=== PATIENT | male | born 1995 | race Hispanic/Latino ===

== ENCOUNTER 2020-07-10 14:51 | Emergency (ER) | payer BC, OTHER ==
[2020-07-10 15:34] LABS: RAPID GROUP A STREP NEGATIVE (NEGATIVE)
[2020-07-10] MEDS ORDERED: DEXAMETHASONE SOD PHOSPHATE 10MG/ML 1ML VIAL ONE (16:12)
== END 2020-07-10 16:34 | disposition home or self-care (01) ==
LOC: EDH 14:51
DX: J45.21 Mild intermittent asthma with (acute) exacerbation (principal); Z20.828 Contact with and (suspected) exposure to other viral communicable diseases; Z98.890 Other specified postprocedural states; Z87.891 Personal history of nicotine dependence
CPT/HCPCS: 71045; 87426; 87804 ×2; 87880; 96372; 99284; J1100

== ENCOUNTER 2021-01-26 15:17 | Emergency (ER) | payer BC ==
[~2021-01-26] VITALS: Ht 190.5 cm; Wt 81.6 kg
[2021-01-26 15:18] VITALS: BP 115/67
[2021-01-26 16:44] LABS: BASOPHILS % (AUTO) 0.6 % (0.0-5.0); EOSINOPHILS % (AUTO) 0.8 % (0.0-8.0); LYMPHOCYTES % (AUTO) 22.2 % (21.0-51.0); MEAN CORPUSCULAR HEMOGLOBIN 30.3 pg (27.0-33.0); MEAN CORPUSCULAR HGB CONC 32.9 g/dL (32.0-36.0); MEAN CORPUSCULAR VOLUME 92.3 fL (79-99); MONOCYTES % (AUTO) 21.6 % (3.0-13.0); NEUTROPHILS % (AUTO) 54.6 % (40.0-77.0); PLATELET COUNT (AUTO) 272 K/uL (130-400); RED BLOOD CELL COUNT(AUTO) 5.31 MIL/uL (4.50-6.20); RED CELL DISTRIBUTION WIDTH 12.3 % (11.0-15.5); WHITE BLOOD COUNT (AUTO) 5.1 K/uL (4.8-10.8)
[2021-01-26] MEDS ORDERED: AZIT500T PO (16:52)
[2021-01-26] MEDS ORDERED: FLUT220HFA IH (16:52)
[2021-01-26] MEDS ORDERED: IVER3TAB PO (16:52)
[2021-01-26] MEDS ORDERED: ALBUHFA IH (16:54)
[2021-01-26 16:56] LABS: CREATININE 0.8 mg/dL (0.5-1.5)
[2021-01-26] MEDS ORDERED: AZITHROMYCIN 250 MG TABLET PO ONE (17:00)
[2021-01-26 17:01] LABS: ALBUMIN 4.3 g/dL (3.5-5.0); BILIRUBIN,TOTAL 0.6 mg/dL (0.2-1.0); TOTAL PROTEIN, SERUM 7.6 g/dL (6.0-8.3)
== END 2021-01-26 17:23 | disposition home or self-care (01) ==
LOC: EDH 15:17
DX: U07.1 COVID-19 (principal); J06.9 Acute upper respiratory infection, unspecified; Z79.899 Other long term (current) drug therapy; Z79.51 Long term (current) use of inhaled steroids
CPT/HCPCS: 36415; 71045; 80053; 83605; 85025; 87635; 87804 ×2; 87880; 99284; C9803